=== PATIENT | female | born 1995 | race Caucasian/White ===

== ENCOUNTER 2019-01-01 09:51 | Inpatient (IN) ==
[2019-01-01] MEDS ORDERED: Epidural Premix (fent/bupiv) 110 ML EP SCH (10:30)
[2019-01-01] MEDS ORDERED: *HR* Nalbuphine 10 MG/ML AMPUL IVP PRN (11:20)
[2019-01-01] MEDS ORDERED: Metoclopramide 10 MG/2 ML VIAL IVP PRN (11:20)
[2019-01-01] MEDS ORDERED: Ondansetron 4 MG/2 ML VIAL IVP PRN (11:20)
[2019-01-01] MEDS ORDERED: Famotidine 20 MG/2 ML VIAL IVP PRN (11:20)
[2019-01-01] MEDS ORDERED: Oxytocin 20 units/ LR 1000 mL 20 UNIT/1,000 ML BAG IVC SCH ×2 (11:30→21:56)
[2019-01-01 11:39] LABS: Basophils # 0.1 K/mcL (0.0-0.2); Basophils % 0.4 %; Eosinophils # 0.1 K/mcL (0.0-0.6); Eosinophils % 0.8 %; Hematocrit 36.9 % (35.3-44.9); Hemoglobin 12.3 g/dL (11.5-15.4); Immature Granulocytes % 0.8 % (0-4); Lymphocytes % 14.9 %; Mean Corpuscular HGB Conc 33.3 g/dL (31.6-35.5); Mean Corpuscular Hemoglobin 29.3 pg (28.0-33.3); Mean Corpuscular Volume 87.9 fL (83.0-100.0); Mean Platelet Volume 10.7 fL (9.4-12.4); Monocytes # 1.4 K/mcL (0.0-1.3); Monocytes % 10.2 %; Neutrophils # 9.6 K/mcL (1.6-8.9); Platelet Count 271 K/mcL (140-400); Segmented Neutrophils % 72.9 %; White Blood Count 13.2 K/mcL (4.3-11.1)
[2019-01-01 11:56] LABS: Amphetamine Screen,Urine Negative ng/mL (Cutoff=1000); Barbiturate Screen,Urine Negative ng/mL (Cutoff=200); Benzodiazepines Screen,Urine Negative ng/mL (Cutoff=200); Cannabinoid Screen,Urine Negative ng/mL (Cutoff = 50); Cocaine Screen,Urine Negative ng/mL (Cutoff= 300); Opiate Screen,Urine Negative ng/mL (Cutoff=300); Phencyclidine Screen,Urine Negative ng/mL (Cutoff=25)
[2019-01-01] MEDS: Ringers Solution, Lactated 1,000 ML IVC SCH ×2 (12:20→15:17)
[2019-01-01] MEDS ORDERED: Acetaminophen 325 MG TABLET PO PRN (21:56)
[2019-01-01] MEDS ORDERED: Measles/Mumps/Rubella Vacc 0.5 ML VIAL SQ PRN (21:56)
[2019-01-01] MEDS ORDERED: Ibuprofen 600 MG TABLET PO PRN (21:56)
[2019-01-02 06:38] LABS: Basophils # 0.1 K/mcL (0.0-0.2); Basophils % 0.3 %; Eosinophils # 0.3 K/mcL (0.0-0.6); Eosinophils % 1.6 %; Hematocrit 34.1 % (35.3-44.9); Hemoglobin 11.5 g/dL (11.5-15.4); Immature Granulocytes % 0.6 % (0-4); Lymphocytes # 2.2 K/mcL (0.6-4.6); Lymphocytes % 14.1 %; Mean Corpuscular HGB Conc 33.7 g/dL (31.6-35.5); Mean Corpuscular Hemoglobin 29.4 pg (28.0-33.3); Mean Corpuscular Volume 87.2 fL (83.0-100.0); Mean Platelet Volume 10.7 fL (9.4-12.4); Monocytes # 1.2 K/mcL (0.0-1.3); Monocytes % 7.6 %; Neutrophils # 11.7 K/mcL (1.6-8.9); Platelet Count 234 K/mcL (140-400); Red Blood Count 3.91 M/mcL (3.82-4.97); Red Cell Distribution Width 14.3 % (11.5-14.5); Segmented Neutrophils % 75.8 %; White Blood Count 15.4 K/mcL (4.3-11.1)
[2019-01-02] MEDS ORDERED: Prenatal Vit/FA 1 EACH TABLET PO SCH (09:00)
[2019-01-02 16:27] VITALS: BP 125/70
== END 2019-01-02 20:45 | disposition home or self-care (01) | DRG 560 ==
LOC: 1NENULAB 09:51 → 1NENUOBS 01-02 01:09
PROVIDERS: ADMIT Obstetrics & Gynecology; ATTEND Obstetrics & Gynecology

== ENCOUNTER 2020-04-28 14:52 | Inpatient (IN) ==
[2020-04-28] MEDS ORDERED: Ondansetron 4 MG/2 ML VIAL IVP PRN (15:06)
[2020-04-28] MEDS ORDERED: Naloxone 0.4 MG/ML INJ IVP PRN (15:06)
[2020-04-28] MEDS ORDERED: *HR* Nalbuphine 10 MG/ML AMPUL IV PRN (15:06)
[2020-04-28] MEDS ORDERED: Azithromycin 500 MG in 0.9 % Sodium Chloride 250 ML IVPB ONE (15:06)
[2020-04-28] MEDS ORDERED: Famotidine 20 MG/2 ML VIAL IVP PRN (15:06)
[2020-04-28] MEDS ORDERED: Lidocaine 1% 20 ML MDV INFILT PRN (15:06)
[2020-04-28] MEDS ORDERED: Metoclopramide 10 MG/2 ML VIAL IVP PRN (15:06)
[2020-04-28] MEDS ORDERED: Ringers Solution, Lactated 1,000 ML IVC SCH (15:15)
[2020-04-28] MEDS ORDERED: Clindamycin 900 MG/50 ML 900 MG/50 ML IV.SOLN IVPB SCH (16:00)
[2020-04-28 16:06] LABS: Basophils % 0.3 %; Eosinophils # 0.1 K/mcL (0.0-0.6); Eosinophils % 0.5 %; Hematocrit 35.8 % (35.3-44.9); Hemoglobin 11.8 g/dL (11.5-15.4); Immature Granulocytes % 0.7 % (0-4); Lymphocytes # 2.1 K/mcL (0.6-4.6); Lymphocytes % 15.1 %; Mean Corpuscular Hemoglobin 27.8 pg (28.0-33.3); Mean Corpuscular Volume 84.2 fL (83.0-100.0); Mean Platelet Volume 11.4 fL (9.4-12.4); Monocytes # 0.8 K/mcL (0.0-1.3); Monocytes % 6.1 %; Neutrophils # 10.5 K/mcL (1.6-8.9); Platelet Count 239 K/mcL (140-400); Red Blood Count 4.25 M/mcL (3.82-4.97); Red Cell Distribution Width 15.1 % (11.5-14.5); Segmented Neutrophils % 77.3 %; White Blood Count 13.5 K/mcL (4.3-11.1)
[2020-04-28 16:18] LABS: Amphetamine Screen,Urine Negative ng/mL (Cutoff=1000); Barbiturate Screen,Urine Negative ng/mL (Cutoff=200); Benzodiazepines Screen,Urine Negative ng/mL (Cutoff=200); Cannabinoid Screen,Urine Negative ng/mL (Cutoff = 50); Cocaine Screen,Urine Negative ng/mL (Cutoff= 300); Opiate Screen,Urine Negative ng/mL (Cutoff=300); Phencyclidine Screen,Urine Negative ng/mL (Cutoff=25)
[2020-04-28] MEDS ORDERED: Oxytocin 20 units/ LR 1000 mL 20 UNIT/1,000 ML BAG IVC SCH (16:30)
[2020-04-28 17:15] LABS: Influenza A PCR Negative (Negative); Influenza B PCR Negative (Negative); Resp. Syncytial Virus PCR Negative (Negative)
[2020-04-28] MEDS ORDERED: EPHEDrine 50 MG/ML VIAL IVP PRN (17:16)
[2020-04-28 17:18] LABS: SARS-CoV-2 by PCR (In House) Negative (Negative)
[2020-04-28] MEDS ORDERED: Epidural Premix (fent/bupiv) 110 ML EP SCH (17:30)
[2020-04-28] MEDS ORDERED: *HR* FentaNYL (PF) 100 MCG/2 ML VIAL ONE (19:59)
[2020-04-28] MEDS ORDERED: Ropivacaine/PF 0.2% 20 ML VIAL ONE (19:59)
[2020-04-29] MEDS ORDERED: Oxytocin 20 units/ LR 1000 mL 20 UNIT/1,000 ML BAG IVC SCH (01:05)
[2020-04-29] MEDS ORDERED: Acetaminophen 325 MG TABLET PO PRN (01:05)
[2020-04-29] MEDS ORDERED: Measles/Mumps/Rubella Vacc 0.5 ML VIAL SQ PRN (01:05)
[2020-04-29] MEDS: Ibuprofen 600 MG TABLET PO PRN ×2 (04:50→16:09)
[2020-04-29 05:45] LABS: Basophils % 0.2 %; Eosinophils # 0.1 K/mcL (0.0-0.6); Eosinophils % 0.6 %; Hematocrit 33.8 % (35.3-44.9); Hemoglobin 11.3 g/dL (11.5-15.4); Immature Granulocytes % 0.7 % (0-4); Lymphocytes # 1.9 K/mcL (0.6-4.6); Lymphocytes % 11.2 %; Mean Corpuscular HGB Conc 33.4 g/dL (31.6-35.5); Mean Corpuscular Hemoglobin 28.1 pg (28.0-33.3); Mean Corpuscular Volume 84.1 fL (83.0-100.0); Mean Platelet Volume 11.3 fL (9.4-12.4); Monocytes # 1.3 K/mcL (0.0-1.3); Monocytes % 7.6 %; Neutrophils # 13.3 K/mcL (1.6-8.9); Platelet Count 193 K/mcL (140-400); Red Blood Count 4.02 M/mcL (3.82-4.97); Segmented Neutrophils % 79.7 %; White Blood Count 16.6 K/mcL (4.3-11.1)
[2020-04-29] MEDS: Prenatal Vit/FA 1 EACH TABLET PO SCH (08:22)
[2020-04-29] MEDS ORDERED: NON-FORMULARY MEDICATION 1 EACH EACH (Prenatal Vitamin Tablet 1 TAB) PO SCH (09:00)
[2020-04-29] MEDS ORDERED: NON-FORMULARY MEDICATION 1 EACH EACH (Ferrous Sulfate 1 TAB) PO SCH (09:00)
[2020-04-30] MEDS: Ibuprofen 600 MG TABLET PO PRN ×3 (01:34→14:45)
[2020-04-30] MEDS: Prenatal Vit/FA 1 EACH TABLET PO SCH (08:12)
[2020-04-30 08:28] VITALS: BP 124/75
== END 2020-04-30 16:19 | disposition home or self-care (01) | DRG 560 ==
LOC: 1NENULAB → OBSVTOIN 14:52 → 1NENUOBS 04-29 01:05
PROVIDERS: ADMIT Obstetrics & Gynecology; ATTEND Obstetrics & Gynecology